=== PATIENT | female | born 1945 | race Caucasian/White ===

== ENCOUNTER → 2021-05-11 09:37 | Outpatient (CLI) | payer MEDICARE, BC, SELFPAY ==
[2021-05-11 10:35] LABS: Add Manual Diff / Slide Review NO; Basophils Absolute Auto 100 /uL (0-100); Eosinophils Absolute Auto 100 /uL (0-450); Eosinophils Percent Auto 2.7 % (2-4); Hematocrit 39.1 % (36-46); Hemoglobin 12.8 g/dL (12.0-16.0); Lymphocytes Absolute Auto 1000 /uL (1100-4500); Lymphocytes Percent Auto 19.8 % (25-40); Mean Corpuscular HGB Conc 32.6 % (30-36); Mean Corpuscular Hemoglobin 29.8 PG (26-34); Mean Corpuscular Volume 91.4 fL (80-100); Monocytes Absolute Auto 500 /uL (0-900); Monocytes Percent Auto 9.6 % (3-14); Neutrophils Absolute Auto 3500 /uL (1500-7000); Neutrophils Percent Auto 66.9 % (50-75); Platelet Count 260 X10^3/uL (150-400); Red Blood Cell Count 4.28 X10^6/uL (4.0-5.2); Red Cell Distribution Width 12.6 % (11.6-14.8); White Blood Cell Count 5.2 X10^3/uL (4.5-11.0)
[2021-05-11 10:45] LABS: Alanine Aminotransferase 13 IU/L (<35); Albumin 4.4 g/dL (3.5-5.0); Albumin Globulin Ratio 1.5 (1.0-2.8); Alkaline Phosphatase 86 U/L (38-126); Aspartate Aminotransferase 28 IU/L (14-36); BUN Creatinine Ratio 20.6 (6-22); Bilirubin Total 0.5 mg/dL (0.2-1.3); Blood Urea Nitrogen 14 mg/dL (7-17); Calcium 9.3 mg/dL (8.4-10.2); Carbon Dioxide 27 mmol/L (22-32); Chloride 104 mmol/L (98-107); Cholesterol 224 mg/dL (140-199); Estimated Glomerular Filt Rate > 60.0 mL/min (>60); Glucose 102 mg/dL (80-110); HDL Cholesterol 65 mg/dL (40-60); HEMOLYSIS < 15 (0-50); LDL Cholesterol Calculated 139 mg/dL (<100); Magnesium 2.2 mg/dL (1.6-2.3); Sodium 137 mmol/L (137-145); Total Protein 7.4 g/dL (6.3-8.2); Triglycerides 102 mg/dL (35-150)
--- OUTSIDE RECORDS SUMMARY | 2021-05-12 07:54 | XMS_ITS | Referral Summary ---
:1945 Author Organization [address] [address] Care Team Providers Name Role Phone Junaid Primary Care Provider Reason for Referral Consultation (Routine) - Authorized Specialty Diagnoses / Procedures Referred By Contact Refer red To Contact Diagnoses Snoring Karlene Salmeron MD [address] [place] [phone] [place], [place] [address] Referral ID Status Reason Start Expiration Visits Visits Date Date Requested Authorized [id number] Authorized Specialty 03/24/2021 03/19/2022 1 1 Services Required Diagnostic Imaging (Routine) - Closed Specialty Diagnoses / Procedures Referred By Contact Refer red To Contact Radiology Diagnoses PVC's (premature ventricular contractions) Karlene Salmeron MD [facility] Echocardiography Procedures ECHOCARDIOGRAM STRESS ISCHEMIA [address] [place] [address] [address] [phone] Referral ID Status Reason Start Date Expiration Date Visits Requ ested Visits Authorized [id number] Closed 03/24/2021 03/19/2022 1 1 Diagnostic Imaging (Routine) - Closed Specialty Diagnoses / Procedures Referred By Contact Refer red To Contact Radiology Diagnoses PVC's (premature ventricular contractions) Karlene Salmeron MD [facility] Echocardiography Procedures ECHOCARDIOGRAM COMPLETE [address] [place] [address] [address] [place], [place] [phone] Referral ID Status Reason Start Date Expiration Date Visits Requ ested Visits Authorized [id number] Closed 03/24/2021 03/19/2022 1 1 urable Medical Equipment (Routine) - Authorized Specialty Diagnoses / Procedures Referred By Contact Refer red To Contact Cardiology Diagnoses PVC's (premature ventricular contractions) Karlene Salmeron MD [facility] Cardiology Procedures Cardiac event monitor [address] [place] [address] [address] [place] [address], [address] [place], [place] [address] [place] [address] Phone: Fax: Referral ID Status Reason Start Date Expiration Date Visits V isits Requested Authorized [id number] Authorized 03/24/2021 03/19/2022 1 1 Reason for Visit Reason Comments Palpitations Dizziness Encounter Details Date Type Department Care Team Description 03/24/2021 Office Visit [facility] Karlene Salmeron Dizziness and giddiness (Primary Dx); Clinics Cardiology MD Dany PVC's (premature ventricular contraction s); [place] [facility] [address] [place] [address] Abnormal EKG; [address] [place] [address], [address] Elevated blood pressure reading; D [place], [place] Snoring; [place] [address] Dyslipidemia [id number] Allergies No known active allergiesdocumented as of this encounter (statuses as of 05/07/2021) Medications Medication Sig Dispensed Refills Start Date End Date Status coQ10, ubiquinol, Take 100 mg by 0 Active 100 mg capsule mouth daily metroNIDAZOLE Apply topically 2 0 Active (METROGEL) 0.75 % (two) times a day gel ciclopirox (PENLAC) Apply topically 0 Active 8 % solution nightly Apply over nail and surrounding skin. Apply daily over previous coat. After seven (7) days, may remove with alcohol and continue cycle. vit A/vit C/vit Take by mouth 0 Active E/zinc/copper (ICAPS AREDS ORAL) vitamin B complex (B Take by mouth 0 Active COMPLEX-VITAMIN B12 ORAL) cholecalciferol, Take by mouth 0 Active vitamin D3, (Vitamin D3) 50 mcg (2,000 unit) capsule metoprolol succinate Take 1 tablet (25 90 tablet 3 03/24/2021 03/24/2022 Active XL (TOPROL-XL) 25 mg mg total) by mouth 24 hr tablet daily documented as of this encounter (statuses as of 05/07/2021) Active Problems Problem Noted Date Dizziness and giddiness 03/24/2021 Snoring 03/24/2021 Dyslipidemia 03/24/2021 documented as of this encounter (statuses as of 05/07/2021) Social History Tobacco Use Types Packs/Day Years Used Date Former Smoker Smokeless Tobacco: Never Used Sex Assigned at Date Recorded Not on file Job Start Date Occupation Industry Not on file Not on file Not on file documented as of this encounter Last Filed Vital Signs Vital Sign Reading Time Taken Comments Blood Pressure 152/60 03/24/2021 3:18 PM PDT Pulse 100 03/24/2021 2:25 PM PDT Temperature - - Respiratory Rate - - Oxygen Saturation - - Inhaled Oxygen Concentration - - Weight 78.2 kg (172 lb 6.4 oz) 03/24/2021 2:24 PM PDT Height 172.7 cm (5' 8) 03/24/2021 2:24 PM PDT Body Mass Index 26.21 03/24/2021 2:24 PM PDT documented in this encounter Progress Notes Karlene Salmeron MD - 03/24/2021 2:40 PM PDT Patient Education Heart Palpitations WHAT YOU NEED TO KNOW: Heart palpitations are feelings that your heart races, jumps, throbs, or flutters. You may feel extra beats, no beats for a short time, or skipped beats. You may have these feelings in your chest, throat, or neck. They may happen when you are sitting, standing, or lying. Heart palpitations may be frightening, but are usually not caused by a serious problem. DISCHARGE INSTRUCTIONS: Call 911 or have someone else call for any of the following: ?? You have any of the following signs of a heart attack: ? Squeezing, pressure, or pain in your chest ? You may also have any of the following: ?? Discomfort or pain in your back, neck, jaw, stomach, or arm ?? Shortness of breath ?? Nausea or vomiting ?? Lightheadedness or a sudden cold sweat ?? You have any of the following signs of a stroke: ? Numbness or drooping on one side of your face ? Weakness in an arm or leg ? Confusion or difficulty speaking ? Dizziness, a severe headache, or vision loss ?? You faint or lose consciousness. Return to the emergency department if: ?? Your palpitations happen more often or get more intense. Contact your healthcare provider if: ?? You have new or worsening swelling in your feet or ankles. ?? You have questions or concerns about your condition or care. Follow up with your healthcare provider as directed: You may need to follow up with a cytologist.You may need tests to check for heart problems that cause palpitations. Write down your questions soyou remember to ask them during your visits. Keep a record: Write down when your palpitations start and stop, what you were doing when they started, and your symptoms. Keep track of what you ate or drank within a few hours of your palpitations. Include anything that seemed to help your symptoms, such as lying down or holding your breath. This record will help you and your healthcare provider learn what triggers your palpitations. Bring this record with you to your follow up visits. Help prevent heart palpitations: ?? Manage stress and anxiety. Find ways to relax such as listening to music, meditating, or doing yoga. Exercise can also help decrease stress and anxiety. Talk to someone you trust about your stress or anxiety. You can also talk to a therapist. ?? Get plenty of sleep every night. Ask your healthcare provider how much sleep you need each night. ?? Do not drink caffeine or alcohol. Caffeine and alcohol can make your palpitations worse. Caffeine is found in soda, coffee, tea, chocolate, and drinks that increase your energy. ?? Do not smoke. Nicotine and other chemicals in cigarettes and cigars may damage your heart and blood vessels. Ask your healthcare provider for information if you currently smoke and need help to quit. E-cigarettes or smokeless tobacco still contain nicotine. Talk to your healthcare provider before you use these products. ?? Do not use illegal drugs. Talk to your healthcare provider if you use illegal drugs and want help to quit. ?? Copyright [employer] 2019 Information is for End User's use only and may not be sold, redistributed or otherwise used for commercial purposes. All illustrations and images included in CareNotes?? are the copyrighted property of [employer] or [employer] The above information is an transfusion aide only. It is not intended as medical advice for individual conditions or treatments. Talk to your doctor, nurse or pharmacist before following any medical regimen to see if it is safe and effective for you. Tiffanie Salmeron MD - 03/24/2021 2:40 PM PDT Subjective Patient ID: Adia Musa is a 75 y.o. female that had concerns including Palpitations and Dizziness. HPI: This 75 years old female who denies any history of diabetes mellitus or hypertension but has hyperlipidemia, off and on palpitation since she was 20 years old, got referred to us for cardiology evaluation. According to the patient her palpitations started when she was in 20s however frequency was pretty low. Up until recently she had total 5 episodes of palpitation. Lately she started having more palpitation. About a month ago she woke up. When she was bending she started having lightheadedness withsome tinnitus as well as fast heart rate. She laid down and lasted more than 30 minutes and got better. Sometimes when she gets palpitation she gets some discomfort around her neck. She drinks 6 cups of coffee. No excessive alcohol intake. She has symptoms of sleep apnea but never been investigated. No previous history of rheumatic heart disease or congenital heart disease or myocardial infarction or congestive heart failure or DVT or pulmonary embolism. Denies any typical exertional anginal pain. She has history of smoking for about 25 years in the remote past. Denies any asthma or COPD symptoms. She has chronic cold hands and feet without any evidence of gangrene or ulcer. No known history of connective tissue disorders. EK03/24/2021:Sinus Rhythm with rate about 100 bpm-Frequent pvcs -ventricular bigeminy R wave progression, some nonspecific repolarization changes, QTC 418 ms. History reviewed. No pertinent past medical history. History reviewed. No pertinent surgical history. History reviewed. No pertinent family history. Social History Socioeconomic History ??? Marital status: Spouse name: Not on file ??? Number of children: Not on file ??? Years of education: Not on file ??? Highest education level: Not on file Tobacco Use ??? Smoking status: Former Smoker ??? Smokeless tobacco: Never Used No Known Allergies Current Medication List Sig cholecalciferol, vitamin D3, (Vitamin D3) 50 mcg (2,000 unit) capsule Take by mouth ciclopirox (PENLAC) 8 % solution Apply topically nightly Apply over nail and surrounding skin. Apply daily over previous coat. After seven (7) days, may remove with alcohol and continue cycle. coQ10, ubiquinol, 100 mg capsule Take 100 mg by mouth daily metroNIDAZOLE (METROGEL) 0.75 % gel Apply topically 2 (two) times a day vit A/vit C/vit E/zinc/copper (ICAPS AREDS ORAL) Take by mouth vitamin B complex (B COMPLEX-VITAMIN B12 ORAL) Take by mouth metoprolol succinate XL (TOPROL-XL) 25 mg 24 hr tablet Take 1 tablet (25 mg total) by mouth daily Review of Systems Constitutional: Positive for fatigue. Negative for fever. HENT: Negative for hearing loss. Eyes: Negative for visual disturbance. Respiratory: Negative for chest tightness. Cardiovascular: Positive for palpitations. Negative for chest pain and leg swelling. Gastrointestinal: Negative for blood in stool. Endocrine: Negative for polydipsia. Genitourinary: Negative for hematuria. Musculoskeletal: Negative for myalgias. Skin: Negative for rash. Neurological: Positive for dizziness. Negative for weakness and light-headedness. Hematological: Bruises/bleeds easily. Psychiatric/Behavioral: Negative for agitation. The patient is not nervous/anxious. Objective BP (!) 152/60 (BP Location: Left arm, Patient Position: Sitting) Pulse 100 Ht 1.727 m Wt 78.2 kg BMI 26.21 kg/m?? Physical Exam: General Appearance: pleasant, cooperative, no apparent distress HENT: No obvious jaundice, no xanthelasma Neck: No obvious JVD Respiratory: clear to auscultation and percussion, no rales or wheeze Cardiovascular: Intermittent irregular rhythm, S1-S2 normal, no S3 no S4, no significant murmur Pulses: No carotid bruit, no obvious abdominal bruit, no evidence of critical limb ischemia Abdomen: Nontender, no hepatosplenomegaly, no obvious pulsatile mass Extremities: No clubbing, cyanosis or trivial bilateral pedal edema Neuro: Alert oriented to time place and person, no obvious motor or sensory deficit. Psych: Appropriate affect, normal mentation and memory Skin: No gangrene or ulcer Assessment/Plan Diagnoses and all orders for this visit: Dizziness and giddiness - ECG 12 Lead (Clinic - Same Day) PVC's (premature ventricular contractions) - CBC Expected Today; Future - Comprehensive Metabolic Panel (CMP) Expires 12 Months; Future - Cardiac event monitor; Future - ECHOCARDIOGRAM COMPLETE; Future - ECHOCARDIOGRAM STRESS ISCHEMIA; Future Abnormal EKG Elevated blood pressure reading - Lipid panel Expires 12 Months; Future - Magnesium Expires 12 Months; Future - TSH; Future Snoring - SRC MV Referral to [facility] Sleep Clinic Dyslipidemia - Lipid panel Expires 12 Months; Future - Magnesium Expires 12 Months; Future - TSH; Future Other orders - metoprolol succinate XL (TOPROL-XL) 25 mg 24 hr tablet; Take 1 tablet (25 mg total) by mouth daily Assessment/Plan Comments: On surface EKG patient has frequent PVCs and there appears to be polymorphic. No significant QTC prolongation. During EKG, patient was not symptomatic. She also has history of fast heart rate since she was in her 20s. Now the frequency has increased. She has symptoms of sleep apnea and according to the she stops breathing in the night as well. At this point of time I will give her eventmonitor to clinch the etiology of her palpitation as well as 2D echo to rule out structural heart disease and exercise stress echo for CAD diagnosis and risk stratification. Will get CBC, electrolytes, TSH and lipid profile. She will also benefit with sleep apnea evaluation. Her systolic blood pressure is mildly elevated. Advised patient start monitoring blood pressure at home. Target blood pressure at least less than 140 x 90 based on JNC 8. We also discussed about medical therapy. I gave her prescription of metoprolol succinate 25 mg daily however patient decided to wait until she gets allthe work-up done. Follow-up after the tests. Preventive measures including decreasing caffeine intake discussed. Patient was examined in the presence of SOURAV Brooks. This note was generated utilizing voice recognition software. While attempts have been made to correct mistakes, common errors may occur, including substitution of words that sound phonetically similar to the intended word as well as random substitution errors. Please take this into consideration and use clinical context when necessary. Electronically signed by Karlene Salmeron MD 03/24/2021 3:20 PM documented in this encounter Plan of Treatment Upcoming Encounters Date Type Specialty Care Team Description 05/12/2021 Telemedicine Cardiology Karlene Salmeron MD [address] [place] [address] [place], [place] [phone] (Wo rk) 05/19/2021 Appointment Radiology Karlene Salmeron MD [address] [place] [address] [address] [place], [place] [id number] Silas Reich MD [address] [place] [id number] 07/01/2021 Office Visit Sleep Medicine Karlene Salmeron MD [address] [place] [phone] Darron Sauceda MD [address] [place] [phone] Scheduled Orders Name Type Priority Associated Order Schedule Diagnoses Lipid panel Expires 12 Lab Routine Elevated blood Exp ected: Months pressure reading 03/24/2021, Dyslipidemia Expires: 2021 Magnesium Expires 12 Lab Routine Elevated blood Expec erendira: Months pressure reading 03/24/2021, Dyslipidemia Expires: 2021 TSH Lab Routine Elevated blood Expected: pressure reading 03/24/2021, Dyslipidemia Expires: 2021 CBC Expected Today Lab Routine PVC's (premature Expec erendira: ventricular 03/24/2021, contractions) Expires: 03/24 Comprehensive Lab Routine PVC's (premature Expected: Metabolic Panel (CMP) ventricular 2020, Expires 12 Months contractions) Expires: 03/24/2022 Cardiac event monitor Cardiac Services Routine PVC's (prematur e 1 Occurrences ventricular starting 2020 contractions) until 03/24/20 23 Scheduled Referrals Name Type Priority Associated Diagnoses Order S chedule SRC MV Referral to Outpatient Referral Routine Snoring Or dered: [facility] Sleep Clinic 03/24/2021 documented as of this encounter Procedures Procedure Name Priority Date/Time Associated Diagnosis Comme nts ECG 12-LEAD Routine 03/24/2021 3:29 PM Dizziness and Results for this PDT giddiness procedure are i n the results section . documented in this encounter Results ECHOCARDIOGRAM COMPLETE (05/05/2021 12:22 PM PDT) Anatomical Region Laterality Modality N/A Echocardiography Specimen [facility] RADIOLOGY SYSTEM - 05/05/2021 3:12 PM PDT ? Nusrat Paulino + + ? Ho nish ?+---------+ : ? : ?[address]: ? : : ? : ?[address] ?: ? : : ? : ?[place], ?: ? : : ? : ? [place] [address] ?: ? : : ? : ?Phone: [phone] ?+---------+ + [phone] ? [phone] ? Echocardiogram Report + + :Name: ADIA MUSA ?Study Date: 05/05/2021 ? Height: 68 in ??: :Hospital ?Read ingLocation: ? Weight: 172 lb : : ? Gender: Female ? BSA: 1.9 m2 ?: :: 1945 ? Age: 75 yrs ?BP: 120/72 mmHg: :Reason For Study: Arrhythmia, PVCs ? : :Ordering Physician: RICHARD, ? : :VIDHU ?Performed By: Nathalie Mijares ?: :Referring: Dr. Gabriel Quiroga ? : + + Interpretation Summary The left ventricle is normal in size. The ejection fraction is estimated to be 55-60%. There is a hypokinesis of mid anterolate ral wall as well as mid posterior lateral wall. The right ventricle is normal in size an d function. There is an echobright linear structure attached to the anterior mitral valve leaflet on the atrium side measuring 0.6 3 cm in length, appears during systole and during diastole seen on the ventricl e side appears to be prolapsed thickened and calcified chordae. No obvi ous valvular dehiscence. No obvious mitral leaflets prolapse. It does not sloan ve any independent movement. It does not appears to be thrombus or vegetation . No significant mitral stenosis or mitral regurgitation. There is mild aortic regurgitation. There is mild luminal irregularity and e chogenicity in the abdominal aorta, suggestive of aortic atherosclerotic dis ease. Procedure: ?? A two-dimensional transtho racic echocardiogram with color flow and Doppler was performed. The study michael lity was technically adequate. There is no prior echocardiogram noted for thi s patient. The patient was in normal sinus rhythm during the exam. Left Ventricle: ?? The left ventricle is normal in size. There is normal left ventricular wall thickness. There is no ventricular septal defect visualized. There is no thrombus. A false chord is n oted (normal variant). The ejection fraction is estimated to be 55-60%. Ther e is a hypokinesis of mid anterolateral wall as well as mid microbiological analyst ior lateral wall. Diastolic parameters suggest a relaxation abnormality of the left ventricle, consistent with probable normal filling pressures. Right Ventricle: ?? The right ventricle is normal in size and function. Atria: ?? The left atrium is mildly dila erendira. Right atrial size is normal. There is no Doppler evidence for an interatria l shunt. Mitral Valve: ?? The mitral valve leafle ts are mildly calcified. There is an echobright linear structure attached to the anterior mitral valve leaflet on the atrium side measuring 0.63 cm in bear gth, appears during systole and during diastole seen on the ventricle side appe ars to be prolapsed thickened and calcified chordae. No obvious valvular d ehiscence. No obvious mitral leaflets prolapse. It does not have any independe nt movement. It does not appears to be thrombus or vegetation. No significant m itral stenosis or mitral regurgitation. There is mild mitral lam lar calcification. There is trace mitral regurgitation. Aortic Valve: ?? The aortic valve opens well. The aortic valve is trileaflet. There is no aortic valve stenosis. There is mild aortic regurgitation. Tricuspid Valve: ?? The tricuspid valve is not well visualized, but is grossly normal. There is trace tricuspid regurgi tation. The right ventricular systolic pressure is estimated to be at least 28 mmHg based on an estimated right atrial pressure of 3 mm Hg. Pulmonic Valve: ?? The pulmonic valve le aflets are thin and pliable; valve motion is normal. There is mild pulmonic regurgitation. Great Vessels: ?? The aortic root is nor mal size. The ascending aorta is normal in size. The aortic arch is normal in si ze. There is mild luminal irregularity and echogenicity in the abdominal aorta, suggestive of aortic atherosclerotic disease. The IVC is of normal diameter a nd collapses greater than 50% with a sniff. This suggests a low right atrial pressure of 3 mm Hg. Pericardium/ Pleura ?? There is no peric ardial effusion. MMode/2D Measurements & Calculations LVIDd: 4.2 cm ?AoV Openin.9 cm LVIDs: 2.4 cm ?LVOT diam: 2.2 cm IVSd: 0.64 cm ?Ao root diam: 3.0 cm LVPWd: 0.67 cm ? asc Aorta Diam: 3.2 cm LV callejas. diameter/BSA (cm/m^2): 2.2 ?Ao Arch Diam (Prox Trans): 2.0 cm LV sys. diameter/BSA (cm/m^2): 1.3 FS: 42.3 % EPSS: 0.18 cm ? LA A2 area: 23.1 cm2 ? RA long axis: 4.7 cm LA A4 area: 20.6 cm2 ? RA area: 14.2 cm2 LA length (vol): 5.2 cm ?RA vol: 36.1 ml LA vol: 78.3 ml ?RA : 18.8 ml/m2 LA vol index: 40.8 ml/m2 ? RVD1 (basal): 3.1 cm ? IVC diam: 1.2 cm TAPSE: 2.9 cm Doppler Measurements & Calculations Ao V2 max: 111.7 cm/sec ? LVOT Max Jez: 85.0 cm/sec Ao V2 mean: 75.0 cm/sec ? LV V1 max P.9 mmHg Ao V2 VTI: 21.7 cm ?LV V1 VTI: 18.4 cm Ao max P.0 mmHg Ao mean P.6 mmHg ? JUDY(I,D): 3.3 cm2 ? AI P1/2t: 568.0 msec JUDY(V,D): 3.0 cm2 ? AI dec slope: 237.1 cm/sec2 JUDY indexed to BSA (cm^2/m^2): 1.7 sev ratio: 0.85 ? MV E max jez: 68.4 cm/sec ? MV dec time: 0.27 sec MV A max jez: 96.9 cm/sec MV E/A: 0.71 Med Peak E' Jez: 6.4 cm/sec E/E' med: 10.6 Lat Peak E' Jez: 7.9 cm/sec E/E' lat: 8.7 E/e' average: 9.6 ? TR max jez: 248.5 cm/sec ?PA V2 max: 75.2 cm/sec TR max P.7 mmHg ?PA V2 mean: 49.0 cm/sec ?PA mean P.1 mmHg ?PA pr(Accel): 40.5 mmHg ? SV(LVOT): 71.5 ml ?Electronicall y signed by: Karlene Salmeron on 05/05/2021 Reading Physician:03:12 PM Procedure Note Karlene Salmeron MD - 05/05/2021 Nusrat Paulino + + Hospi anaid +---------+ : : [address] : [address] : [address] : : : : [place], : : : : [place] [address] : : : : Phone: [phone] Echocardiog francisco Report + + :Name: ADIA MUSA Study Da te: 05/05/2021 Height: 68 in : :Hospital ReadingL ocation: Weight: 172 lb : : Gender: Female BSA: 1.9 m2 : :: 1945 Age: 75 yrs BP: 120/72 mmHg: :Reason For Study: Arrhythmia, PVCs : :Ordering Physician: RICHARD, : :KARLENE johnson By: Nathalie Mijares : :Referring: Dr. Gabriel Quiroga : + + Interpretation Summary The left ventricle is normal in size. The ejection fraction is estimated to be 55-60%. There is a hypokinesis of mid anterolate ral wall as well as mid posterior lateral wall. The right ventricle is normal in size an d function. There is an echobright linear structure attached to the anterior mitral valve leaflet on the atrium side measuring 0.6 3 cm in length, appears during systole and during diastole seen on the ventricl e side appears to be prolapsed thickened and calcified chordae. No obvi ous valvular dehiscence. No obvious mitral leaflets prolapse. It does not sloan ve any independent movement. It does not appears to be thrombus or vegetation . No significant mitral stenosis or mitral regurgitation. There is mild aortic regurgitation. There is mild luminal irregularity and e chogenicity in the abdominal aorta, suggestive of aortic atherosclerotic dis ease. Procedure: A two-dimensional transthor acic echocardiogram with color flow and Doppler was performed. The study michael lity was technically adequate. There is no prior echocardiogram noted for thi s patient. The patient was in normal sinus rhythm during the exam. Left Ventricle: The left ventricle is normal in size. There is normal left ventricular wall thickness. There is no ventricular septal defect visualized. There is no thrombus. A false chord is n oted (normal variant). The ejection fraction is estimated to be 55-60%. Ther e is a hypokinesis of mid anterolateral wall as well as mid microbiological analyst ior lateral wall. Diastolic parameters suggest a relaxation abnormality of the left ventricle, consistent with probable normal filling pressures. Right Ventricle: The right ventricle i s normal in size and function. Atria: The left atrium is mildly dilat ed. Right atrial size is normal. There is no Doppler evidence for an interatria l shunt. Mitral Valve: The mitral valve leaflet s are mildly calcified. There is an echobright linear structure attached to the anterior mitral valve leaflet on the atrium side measuring 0.63 cm in bear gth, appears during systole and during diastole seen on the ventricle side appe ars to be prolapsed thickened and calcified chordae. No obvious valvular d ehiscence. No obvious mitral leaflets prolapse. It does not have any independe nt movement. It does not appears to be thrombus or vegetation. No significant m itral stenosis or mitral regurgitation. There is mild mitral lam lar calcification. There is trace mitral regurgitation. Aortic Valve: The aortic valve opens w ell. The aortic valve is trileaflet. There is no aortic valve stenosis. There is mild aortic regurgitation. Tricuspid Valve: The tricuspid valve i s not well visualized, but is grossly normal. There is trace tricuspid regurgi tation. The right ventricular systolic pressure is estimated to be at least 28 mmHg based on an estimated right atrial pressure of 3 mm Hg. Pulmonic Valve: The pulmonic valve abhishek flets are thin and pliable; valve motion is normal. There is mild pulmonic regurgitation. Great Vessels: The aortic root is norm al size. The ascending aorta is normal in size. The aortic arch is normal in si ze. There is mild luminal irregularity and echogenicity in the abdominal aorta, suggestive of aortic atherosclerotic disease. The IVC is of normal diameter a nd collapses greater than 50% with a sniff. This suggests a low right atrial pressure of 3 mm Hg. Pericardium/ Pleura There is no perica rdial effusion. MMode/2D Measurements & Calculations LVIDd: 4.2 cm AoV Openin.9 cm LVIDs: 2.4 cm LVOT diam: 2.2 cm IVSd: 0.64 cm Ao root diam: 3.0 cm LVPWd: 0.67 cm asc Aorta Diam: 3.2 cm LV callejas. diameter/BSA (cm/m^2): 2.2 Ao Arch Diam (Prox Trans): 2.0 cm LV sys. diameter/BSA (cm/m^2): 1.3 FS: 42.3 % EPSS: 0.18 cm LA A2 area: 23.1 cm2 RA long axis: 4.7 cm LA A4 area: 20.6 cm2 RA area: 14.2 cm2 LA length (vol): 5.2 cm RA vol: 36.1 ml LA vol: 78.3 ml RA : 18.8 ml/m2 LA vol index: 40.8 ml/m2 RVD1 (basal): 3.1 cm IVC diam: 1.2 cm TAPSE: 2.9 cm Doppler Measurements & Calculations Ao V2 max: 111.7 cm/sec LVOT Max Jez: 85.0 cm/sec Ao V2 mean: 75.0 cm/sec LV V1 max P.9 mmHg Ao V2 VTI: 21.7 cm LV V1 VTI: 18.4 cm Ao max P.0 mmHg Ao mean P.6 mmHg JUDY(I,D): 3.3 cm2 AI P1/2t: 568.0 msec JUDY(V,D): 3.0 cm2 AI dec slope: 237.1 cm/sec2 JUDY indexed to BSA (cm^2/m^2): 1.7 sev ratio: 0.85 MV E max jez: 68.4 cm/sec MV dec time: 0.27 sec MV A max jez: 96.9 cm/sec MV E/A: 0.71 Med Peak E' Jez: 6.4 cm/sec E/E' med: 10.6 Lat Peak E' Jez: 7.9 cm/sec E/E' lat: 8.7 E/e' average: 9.6 TR max jez: 248.5 cm/sec PA V2 max: 75.2 cm/sec TR max P.7 mmHg PA V2 mean: 49.0 cm/sec PA mean P.1 mmHg PA pr(Accel): 40.5 mmHg SV(LVOT): 71.5 ml Reading Physician:03:12 PM Performing Organization Address City/State/ZIP Code Phon e [facility] [address] [place] [address] ECHOCARDIOGRAM STRESS ISCHEMIA (05/05/2021 11:43 AM PDT) Anatomical Region Laterality Modality N/A Echocardiography, Ca rdiovascular Lab Specimen [facility] - 05/05/2021 3:31 PM PDT ? [place] + + ? Ho spital ?+---------+ : ? : ?[address]: ? : : ? : ?[address] ?: ? : : ? : ?[place], ?: ? : : ? : ? [place] [id number] ?: ? : : ? : ?Phone: [phone] ?+---------+ + + ? [phone] ? Str ess Echocardiogram Report + + :Name: ADIA MUSA ?Study Date: 05/05/2021 ? Height: 68 in ??: :Hospital ?Read ingLocation: ? Weight: 172 lb : : ? Gender: Female ? BSA: 1.9 m2 ?: :: 1945 ? Age: 75 yrs ?BP: 170/87 mmHg: :Reason For Study: Arrhythmia, PVCs ?HR: 99 ? : :Ordering Physician: RICHARD, ? : :VIDHU ?Performed By: Nathalie Mijares ?: :Referring: Dr. Gabriel Quiroag ? : + + Interpretation Summary This is an abnormal exercise stress echo with inducible ischemia in the mid to distal lateral wall as well as mid infer ior wall. Post stress LV appears to be dilated. There is no LV function augment ation. Poor exercise tolerance. Decrease in blood pressure during stress . Frequent PVCs at baseline as well as in recovery without any sustained ventri cular tachycardia. Resting LV ejection fraction 55 to 60% and stress LV ejectio n fraction remains 55 to 60%. Calcified mitral valve as well as mitral valve chordae and annulus without any significant mitral stenosis. Stress Results ? Protocol: ??BALBIR ?Maximum Predicted HR: ?? 145 bpm ? Target HR: 123 bpm ?% Maximum Predicted HR: 101 % ? +-------- +--------+ +------+ ? : ?:Duration:Heart Rate: ?: ? : Stage ? ?:(mm:ss) : ??(bpm) ?? : ??BP ??: ? +-------- +--------+ +------+ ? :BASELINE : ?: ?99 ?:170/87: ? +-------- +--------+ +------+ ? : ?? 1 ?: ??2:05 ??: ?? 144 ?:151/53: ? +-------- +--------+ +------+ ?Stress Duration: ?? 2:05 mm:ss * ?Maximum Stress H R: 147 bpm * ? METS: 4 Procedure: ?? Prior to the procedure, in formed consent was obtained for exercise stress echocardiography and use of a contrast agent as needed. A two- dimensional exercise stress echocardiogr am with color flow and Doppler was performed. Echocardiographic images were obtained before and after stress. The patient was monitored closely during str ess and in recovery until the heart rate and blood pressure returned to base line, and then was transferred to the waiting room in stable condition. The st udy quality was technically adequate. There were no complications. Stress Test: ?? The patient exercised fo r 2 minutes 5 seconds on a standard Balbir protocol. Exercise was stopped due to dyspnea. The estimated ANTONIO is +45%. The patient demonstrated moderatel y impaired exercise capacity. The patient had a mildly accelerated heart r ate response to exercise. The maximal heart rate achieved was 101% of the ana rosa ent's predicted maximum heart rate. Baseline blood pressure 170/87. In immed iate recovery blood pressure 151/53. The patient did not have chest pain. The patient developed dyspnea during exercise. Rhythm was sinus with some con cave nonspecific repolarization changes in diffuse leads with slight ST depression and flattening. There was intermittent PVCs as well as PACs. Durin g exercise no worsening of PVCs. In the recovery, PVCs reappeared. There was some ventricular couplets without any ventricular tachycardia. In recovery the re was 1 to [address] depression in inferolateral leads. Rest Echo: ?? The left ventricle is fritz sly normal size. Left ventricular ejection fraction is estimated to be 55- 60%. Stress Echo: ?? The post stress ejection fraction is estimated to be 55-60%. There is LV dilatation with hypokinesis of mid to distal lateral wall as well as mid inferior wall. Doppler Measurements & Calculations TR max jez: 234.5 cm/sec TR max P.0 mmHg ?Electronicall y signed by: Karlene Salmeron on 05/05/2021 Reading Physician:03:31 PM Procedure Note Karlene Salmeron MD - 05/05/2021 Nusrat Paulino + + [address] +---------+ : : [address] : : : : [address] : : : : [place], : : : : [place] [address] : : : : Phone: [phone] +[phone]+ + [phone] Stress Echocard iogram Report + + :Name: ADIA MUSA Study Da te: 05/05/2021 Height: 68 in : :[facility] ReadingL ocation: Weight: 172 lb : : Gender: Female BSA: 1.9 m2 : :: 1945 Age: 75 yrs BP: 170/87 mmHg: :Reason For Study: Arrhythmia, PVCs HR: 99 : :Ordering Physician: RICHARD, : :KARLENE johnson By: Nathalie Mijares : :Referring: Dr. Gabriel Quiroga : + + Interpretation Summary This is an abnormal exercise stress echo with inducible ischemia in the mid to distal lateral wall as well as mid infer ior wall. Post stress LV appears to be dilated. There is no LV function augment ation. Poor exercise tolerance. Decrease in blood pressure during stress . Frequent PVCs at baseline as well as in recovery without any sustained ventri cular tachycardia. Resting LV ejection fraction 55 to 60% and stress LV ejectio n fraction remains 55 to 60%. Calcified mitral valve as well as mitral valve chordae and annulus without any significant mitral stenosis. Stress Results Protocol: BALBIR Max imum Predicted HR: 145 bpm Target HR: 123 bpm % M aximum Predicted HR: 101 % +--------+--------+ +------+ : :Duration: Heart Rate: : : Stage :(mm:ss) : (bpm) : BP : +--------+--------+ +------+ :BASELINE: : 99 :170/87: +--------+--------+ +------+ : 1 : 2:05 : 144 :151/53: +--------+--------+ +------+ Stress Duration: 2:05 mm:ss * Maximum Stress HR: 147 b pm * METS: 4 Procedure: Prior to the procedure, inf ormed consent was obtained for exercise stress echocardiography and use of a contrast agent as needed. A two- dimensional exercise stress echocardiogr am with color flow and Doppler was performed. Echocardiographic images were obtained before and after stress. The patient was monitored closely during str ess and in recovery until the heart rate and blood pressure returned to base line, and then was transferred to the waiting room in stable condition. The st udy quality was technically adequate. There were no complications. Stress Test: The patient exercised for 2 minutes 5 seconds on a standard Balbir protocol. Exercise was stopped due to dyspnea. The estimated ANTONIO is +45%. The patient demonstrated moderatel y impaired exercise capacity. The patient had a mildly accelerated heart r ate response to exercise. The maximal heart rate achieved was 101% of the ana rosa ent's predicted maximum heart rate. Baseline blood pressure 170/87. In immed iate recovery blood pressure 151/53. The patient did not have chest pain. The patient developed dyspnea during exercise. Rhythm was sinus with some con cave nonspecific repolarization changes in diffuse leads with slight ST depression and flattening. There was intermittent PVCs as well as PACs. Durin g exercise no worsening of PVCs. In the recovery, PVCs reappeared. There was some ventricular couplets without any ventricular tachycardia. In recovery the re was 1 to [address] depression in inferolateral leads. Rest Echo: The left ventricle is gross ly normal size. Left ventricular ejection fraction is estimated to be 55- 60%. Stress Echo: The post stress ejection fraction is estimated to be 55-60%. There is LV dilatation with hypokinesis of mid to distal lateral wall as well as mid inferior wall. Doppler Measurements & Calculations TR max jez: 234.5 cm/sec TR max P.0 mmHg Reading Physician:03:31 PM Performing Organization Address City/State/ZIP Code [facility] e Number [facility] [address] [place] [id number] ECG 12 Lead (Clinic - Same Day) (03/24/2021 3:29 PM PDT) Narrative Karlene Salmeron MD - 03/24/2021 3:29 PM PDT This result has an attachment that is no t available. Result approved by Karlene Salmeron MD on 03/24/21 documented in this encounter Visit Diagnoses Diagnosis Dizziness and giddiness - Primary PVC's (premature ventricular contraction s) Other premature beats Abnormal EKG Nonspecific abnormal electrocardiogram ( ECG) (EKG) Elevated blood pressure reading Elevated blood pressure reading without diagnosis of hypertension Snoring Other dyspnea and respiratory abnormalit y Dyslipidemia Other and unspecified hyperlipidemia PVC's (premature ventricular contraction s) Other premature beats PVC's (premature ventricular contraction s) Other premature beats documented in this encounter Insurance Payer Benefit Plan / Subscriber ID Effective Dates Phone Addre ss Type Group MEDICARE MEDICARE PART [id number] 2010-Prese [phone] [address] [place] [address] [employer]MERA SUPP PREMERA BLUE [id number] 2020-Prese [phone] [address] [address] [address] [place] [address] documented as of this encounter Advance Directives Documents on File Type Date Recorded Patient Medical Research Tech Explanati on Advance Directives and Living Will 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
== END ==
PROVIDERS: Family Provider Nurse Practitioner; PCP Family Medicine; Referring Provider Internal Medicine Cardiovascular Disease; Visit Provider Internal Medicine Cardiovascular Disease
DX: R03.0 Elevated blood-pressure reading, without diagnosis of hypertension (principal); E78.5 Hyperlipidemia, unspecified; I49.3 Ventricular premature depolarization
CPT/HCPCS: 36415; 80053; 80061; 83735; 84443; 85025

== ENCOUNTER → 2023-09-22 08:27 | Outpatient (CLI) | payer MEDICARE, BC, SELFPAY ==
[2023-09-22 09:24] LABS: Alanine Aminotransferase 15 IU/L (<35); Albumin 3.9 g/dL (3.5-5.0); Albumin Globulin Ratio 1.4 (1.0-2.8); Alkaline Phosphatase 78 U/L (38-126); Aspartate Aminotransferase 29 IU/L (14-36); BUN Creatinine Ratio 23.9 (6-22); Bilirubin Total 0.4 mg/dL (0.2-1.3); Blood Urea Nitrogen 21 mg/dL (7-17); Calcium 9.1 mg/dL (8.4-10.2); Carbon Dioxide 28 mmol/L (22-32); Chloride 104 mmol/L (98-107); Estimated Glomerular Filt Rate > 60 mL/min (>60); Globulin 2.8 g/dL (1.7-4.1); Glucose 89 mg/dL (80-110); HEMOLYSIS < 15 (0-50); Potassium 4.3 mmol/L (3.4-5.1); Sodium 136 mmol/L (137-145); Total Protein 6.7 g/dL (6.3-8.2)
[2023-09-22 10:19] LABS: Add Manual Diff / Slide Review NO; Basophils Absolute Auto 0 /uL (0-100); Basophils Percent Auto 0.7 % (0-2); Eosinophils Absolute Auto 200 /uL (0-450); Hematocrit 37.5 % (36-46); Hemoglobin 12.6 g/dL (12.0-16.0); Lymphocytes Absolute Auto 1300 /uL (1100-4500); Lymphocytes Percent Auto 23.3 % (25-40); Mean Corpuscular HGB Conc 33.5 % (30-36); Mean Corpuscular Hemoglobin 30.4 PG (26-34); Mean Corpuscular Volume 90.8 fL (80-100); Monocytes Absolute Auto 700 /uL (0-900); Monocytes Percent Auto 12.1 % (3-14); Neutrophils Absolute Auto 3500 /uL (1500-7000); Neutrophils Percent Auto 60.9 % (50-75); Platelet Count 256 X10^3/uL (150-400); Red Blood Cell Count 4.14 X10^6/uL (4.0-5.2); White Blood Cell Count 5.7 X10^3/uL (4.5-11.0)
== END ==
PROVIDERS: Family Provider Nurse Practitioner; PCP Family Medicine; Referring Provider Nurse Practitioner; Visit Provider Nurse Practitioner
DX: I48.0 Paroxysmal atrial fibrillation (principal)
CPT/HCPCS: 36415; 80053; 85025

== ENCOUNTER → 2025-05-08 07:46 | Outpatient (CLI) | payer MEDICARE, BC, SELFPAY ==
[2025-05-08 08:49] LABS: Cholesterol 234 mg/dL (140-199); HDL Cholesterol 74 mg/dL (40-60); Triglycerides 139 mg/dL (35-150)
== END ==
PROVIDERS: Family Provider Nurse Practitioner; PCP Family Medicine; Referring Provider Nurse Practitioner; Visit Provider Nurse Practitioner
DX: E78.00 Pure hypercholesterolemia, unspecified (principal)
CPT/HCPCS: 36415; 80061